=== PATIENT | female | born 1960 | race Two or more races ===

== ENCOUNTER → 2024-09-18 | Outpatient (CLI) | payer MEDICAID, SELFPAY ==
--- NOTE | 2024-09-18 09:00 | XR_ITS ---
Examination: Abdomen sonogram, complete Date and time of exam: September 18, 2024 0840 hours INDICATIONS: Morbid obesity preop. Technique: Multiple real-time grayscale transabdominal sonographic images of the abdomen have been obtained. Findings: Absent gallbladder Common bile duct 0.9 cm no stones Pancreatic head 3.0 cm Aorta not enlarged Hepatomegaly 22 cm fatty infiltration Normal hepatopedal portal venous flow Patent IVC Right kidney 10.3 cm cortex 1.3 cm Left kidney 12.0 cm cortex 2.3 cm Mild renal parenchymal scar formation Spleen 9.8 cm IMPRESSION: Absent gallbladder Common bile duct 0.9 cm no stones noted Significant hepatomegaly fatty liver
--- NOTE | 2024-09-18 09:30 | XR_ITS ---
Examination: Esophagram standard Fluoroscopy 21 spot fluoroscopic films of the esophagus Upright PA chest single view Upright soft tissue lateral neck single view Date and time: September 18, 2024 0910 hours INDICATIONS: Bariatric surgery preop TECHNIQUE AND FINDINGS: Upright PA chest single view demonstrates normal heart size, lungs are clear Soft tissue lateral neck demonstrates moderate cervical spondylosis Patient swallowed thin barium with 21 spot fluoroscopic films of the esophagus obtained, fluoroscopy 0.08 minute Associated primary peristaltic waves Numerous secondary and tertiary esophageal contractions Esophageal spasm Moderate fairly continuous gastroesophageal reflux No stricture the gastroesophageal junction IMPRESSION: Significant esophageal dysmotility with gastroesophageal reflux
== END | disposition home or self-care (01) ==
LOC: CDIM 08:27
PROVIDERS: PCP Physician Assistant; Referring Provider Surgery; Visit Provider Surgery
DX: K76.0 Fatty (change of) liver, not elsewhere classified (principal); Z90.49 Acquired absence of other specified parts of digestive tract; K21.9 Gastro-esophageal reflux disease without esophagitis
CPT/HCPCS: 74220; 76700; A4699